=== PATIENT | female | born 1945 | race Caucasian/White ===

== ENCOUNTER 2018-08-16 11:32 | Emergency (ER) | payer OTHER ==
[2018-08-16] MEDS: ONDANSETRON (ODT) 4 MG TAB ODT (12:10)
[2018-08-16] MEDS: morphine 2 MG INJ IM (12:11)
== END 2018-08-16 15:08 | disposition home or self-care (01) ==
LOC: E/R 11:32
DX: M54.41 Lumbago with sciatica, right side (principal); I10 Essential (primary) hypertension; E11.9 Type 2 diabetes mellitus without complications; Z79.84 Long term (current) use of oral hypoglycemic drugs
CPT/HCPCS: 72131; 82962; 96372; 99285-25